=== PATIENT | female | born 1945 | race Caucasian/White ===

== ENCOUNTER → 2016-09-05 | Outpatient (CLI) | payer MEDICARE, OTHER ==
--- NOTE | 2016-09-05 11:42 | MAM ---
History: Well woman exam. Date of exam: 09/05/2016 Services provided: Bilateral full field digital screening mammography. CAD, the images were reviewed with R2 computer aided detection. FINDINGS: Glandular tissue is scattered glandular contour with increased mammographic density. Comparison with 2012 exam. Stable glandular distribution. No dominant mass, architectural distortion. Scattered benign-appearing calcifications are stable with a new segmentally distributed calcification left breast 2:00. IMPRESSION: Incomplete study Recommendation: Further characterization grouped microcalcifications left breast 2:00. True lateral film with spot compression magnification views. BIRAD CATEGORY: 0 INCOMPLETE Electronically signed by: Cary Swift MD 09/05/2016 11:41 AM CDT
== END | disposition home or self-care (01) ==
LOC: MAMMO 10:01
PROVIDERS: ATTEND Family Medicine
DX: Z12.31 Encounter for screening mammogram for malignant neoplasm of breast (principal)

== ENCOUNTER → 2016-09-27 | Outpatient (CLI) | payer MEDICARE, OTHER ==
--- NOTE | 2016-09-27 14:42 | MAM ---
History: Segmental microcalcifications left breast 2:00 DATE OF SERVICE: 09/27/2016 Services provided: Full field digital diagnostic left mammography. Targeted Limited left breast sonography. FINDINGS: True lateral and spot compression magnification views of the left breast are obtained. Study is correlated with screening evaluation from 09/05/2016 and last examination from 2011. The glandular parenchyma is nodular in contour and diffusely of increased mammographic density. The spot magnification views raise the question of a focal nodular asymmetry in the retroareolar 1:00 portion of the breast. The microcalcifications on the left are in a segmental distribution and have slight variation in their morphology, extending anterior to posterior approximately 4 cm. Directed left breast sonography confirms a benign-appearing intramammary lymph node at 1:00 retroareolar. A normal appearance to the fibroglandular tissue is otherwise shown. IMPRESSION: Suspicious exam. Segmental microcalcifications left breast 2:00 with differential consideration of fibrocystic change, malignancy or less likely secretory calcifications. Recommendation: Surgical or needle biopsy. Findings and recommendations were communicated to the patient. BIRAD CATEGORY: 4 SUSPICIOUS FINDINGS Electronically signed by: Cary Swift MD 09/27/2016 2:42 PM CDT
--- NOTE | 2016-09-28 17:08 | US ---
History: Indeterminate microcalcifications left breast 2:00. DATE OF SERVICE: 10/05/2016 Services provided: Full field digital diagnostic left mammography. Targeted Limited left breast sonography. FINDINGS: See body of dictation under the mammogram evaluation IMPRESSION: Indeterminate microcalcifications left breast 2:00. Recommendation: Stereotactic or surgical excisional biopsy. Findings and recommendations were communicated to the patient. BIRAD CATEGORY: 4 SUSPICIOUS FINDINGS Electronically signed by: Cary Swift MD 09/28/2016 5:07 PM CDT
== END | disposition home or self-care (01) ==
LOC: MAMMO 12:55
PROVIDERS: ATTEND Family Medicine
DX: R92.8 Other abnormal and inconclusive findings on diagnostic imaging of breast (principal)
CPT/HCPCS: 76641; 77065; G0206

== ENCOUNTER 2016-10-01 15:00 | Inpatient (IN) | payer MEDICARE, OTHER ==
--- NOTE | 2016-10-01 15:04 | HP ---
HISTORY OF PRESENT ILLNESS: This 71 year-old white female was admitted to the hospital as a direct admission from Dr. Verdugo' office. She has been getting sicker for the last 3 days with fever and chills, burning on urination, tenderness in the right upper quadrant of the abdomen with radiation around to the right flank. Dysuria and increased frequency of urination with dribbling of urine has become prominent, especially a couple of days ago with significant chills, malaise, loss of appetite significantly involved. Earlier in the clinic , her white count was noted to be 21,000. She was sent from the clinic to the hospital for specific evaluation because of a significant underlying condition with the possibility of nausea without vomiting contributing to right upper quadrant abdominal pain, possibly being a gallbladder or an acute abdomen. Her abdomen was otherwise soft but she is to be seen in consultation with Dr. Sexton upon arrival in the hospital. Of note is that she has had an abnormal mammogram involving the left breast which is scheduled for close followup as well. PAST MEDICAL HISTORY: 1. Hypertension. PAST SURGICAL HISTORY: 1. Appendectomy. 2. Hysterectomy. CURRENT MEDICATIONS: ALLERGIES: FAMILY HISTORY: Cancer, diabetes and coronary artery disease. 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 She has not smoked and her has subsequently stopped smoking. REVIEW OF SYSTEMS: Significant fever and chills noted the last 2 to 3 days. Weight is stable. HEENT: No hearing or vision disturbances. LUNGS: No significant cough or shortness of breath. CARDIOVASCULAR: No palpitations. ABDOMEN: Decreased appetite, pain in the right upper quadrant radiating around to the right flank. Some nausea present but no vomiting and no significant blood in the stools or diarrhea. EXTREMITIES: No significant edema. NEUROLOGIC: Somewhat weak. Decreased appetite. No focal weakness noted. PHYSICAL EXAMINATION: VITAL SIGNS: Afebrile, blood pressure 126/72, respirations 18, pulse oximetry 97% on room air. Weight is 79.5 kilos. GENERAL: The patient is awake, alert and oriented, and communicative. Her is also present. She has had significant chills recently but is feeling a little bit better now after arriving in the hospital. Generally the patient is acutely ill. HEENT: Unremarkable. NECK: Supple. CHEST: Lungs are clear. CARDIOVASCULAR: Tones are regular with a grade 2/6 systolic murmur up towards the base of the heart suggesting the possibility of an aortic stenotic murmur. ABDOMEN: Has good bowel tones. Some mild tenderness in the right upper quadrant but no rebound tenderness. No organomegaly evident. No evidence of a significant intraabdominal pathology pointing towards surgery at this time. There is percussion tenderness in the right CVA compared to the left. Only minimal right upper quadrant discomfort noted on deep palpation. EXTREMITIES: Fairly well formed with good range of motion. NEUROLOGIC: No focal neurological deficits. The patient is awake, alert and oriented, and communicative. LABORATORY: Laboratory was performed in the clinic. Sugar is 122, BUN 24, creatinine 1.3. The rest of the chemistries were within normal limits. White count is 21,200 with 79% neutrophils, hemoglobin 11.2, platelets 254,000. Urinalysis is performed after her arrival in the hospital and it showed marked hematuria, pyuria and bacteriuria with nitrite negative, and culture now pending. Chest x-ray is performed and shows mild increased heart size. Abdominal ultrasound showed the possibility of some gallbladder sludge, otherwise no evidence of a cholecystitis. Mild liver enlargement. ASSESSMENT: 1. Acute abdominal pain with associated nausea. 2. Significant leukocytosis. 3. Acute urinary tract infection with probable associated right pyelonephritis symptomatic with abdominal pain to the right flank. 4. Cardiac murmur suggesting aortic stenosis. 5. Abnormal mammograph left breast with close followup suggested with Dr. Sexton and further investigation and treatment is indicated. 6. Febrile illness with associated chills. 7. History of hypertension. PLAN: The patient is admitted to the hospital for parenteral therapy with Meropenem pending culture results. The significance of the underlying infection is noted and close observation, management and treatment is necessary. She will be on a restricted fluid diet tonight with GI rest and will be reevaluated in the morning. Close followup with Dr. Sexton is necessary for the abnormal mammogram as well as the abdominal pain currently under evaluation. #[id number] [facility]
[2016-10-01] MEDS ORDERED: SODIUM CHLORIDE 0.9% (FLUSH) 10 ML SYG IV PRN (15:05)
[2016-10-01] MEDS ORDERED: ONDANSETRON INJ 4 MG/2 ML VIAL IV PRN (15:15)
[2016-10-01] MEDS ORDERED: HYDROmorphone HCL INJ 2 MG/ML VIAL IV PRN (15:18)
[2016-10-01] MEDS ORDERED: IV SET AND CAP CHANGE INJ INJ SCH (15:30)
--- NOTE | 2016-10-01 15:57 | US ---
EXAM DESCRIPTION: Abdomen,Complete CLINICAL HISTORY: RUQ abd pain, nausea, elevated WBC's COMPARISON: None Available. TECHNIQUE: Complete abdominal ultrasound FINDINGS: The liver is mildly enlarged at 16.1 cm. It demonstrates normal echogenicity. There is no focal hepatic mass. The gallbladder contains a small amount of layering sludge. No sonographic evidence of cholelithiasis.The gallbladder wall measures 2 mm. The common bile duct measures 5 mm. Visualized portions of the pancreas are unremarkable. Portions of the body and tail are not well seen due to bowel gas. The spleen is normal in size, shape, and echotexture. The right kidney measures 9.5 cm in length, and the left kidney measures 9.7 cm in length. 2 left renal cysts are demonstrated which measure about 1 cm each. The IVC and the proximal aorta are unremarkable. IMPRESSION: 1. Gallbladder sludge without sonographic evidence for cholecystitis. 2. Mild hepatic enlargement. Electronically signed by: Isacc Erwin MD 10/01/2016 3:57 PM CDT
--- NOTE | 2016-10-01 16:05 | RAD ---
EXAM DESCRIPTION: Chest,2 Views CLINICAL HISTORY: 71 years, Female, abd pain COMPARISON: None. FINDINGS: Slightly shallow inspiration. Slight increased opacity at the lung bases probably chronic change or atelectasis. Cardiac silhouette upper normal. IMPRESSION: Mild chronic appearing lung change with heart size upper normal Electronically signed by: Onel Patton MD 10/01/2016 4:04 PM CDT
[2016-10-01] MEDS: PANTOPRAZOLE SODIUM IV 40 MG VIAL IV SCH (16:50)
[2016-10-01] MEDS: KCL 20 MEQ/NS 1,000 ML IVS PRN (16:51)
--- NOTE | 2016-10-01 18:01 | CONS ---
DATE OF CONSULTATION: 10/01/16 HISTORY OF PRESENT ILLNESS: The patient is 71 year-old female who was actually referred to me for tomorrow for an abnormal left mammogram. She was admitted today with fever and what is thought to be right upper quadrant abdominal pain. I have been asked to see her for these. The patient states that she has been febrile since Saturday night. She has had some trouble eating but ate okay Saturday during the day. She denies specific fatty food intolerance. Denies a history of hepatitis or jaundice. Denies blood per rectum, melenic stools. Denies emesis. She denies weight loss. She does state that she has had burning with urination. PAST MEDICAL HISTORY: 1. She had an echocardiogram in 2011 which showed mild aortic stenosis. PAST SURGICAL HISTORY: 1. Hysterectomy. 2. Appendectomy. CURRENT MEDICATIONS: Please see her list in the nurses' notes. ALLERGIES: NO KNOWN DRUG ALLERGIES. FAMILY HISTORY: Positive for breast cancer in her mother and an aortic aneurysm in a brother. SOCIAL HISTORY: The patient is . Does not smoke. She is retired. She drinks on an almost daily basis. REVIEW OF SYSTEMS: Noncontributory, except as in the History of Present Illness. PHYSICAL EXAMINATION: VITAL SIGNS: Temperature was measured at 97.6, blood pressure 126/72, respiratory rate 18, pulse rate 92. GENERAL: The patient is awake, alert and cooperative. HEENT: Sclera are nonicteric. Mucous membranes are moist. NECK: Without adenopathy. BACK: There is right sided CVA tenderness. CHEST: Equal breath sounds bilaterally without wheezing. HEART: Regular rate and rhythm, however there is what sounds to me like a holosystolic murmur. ABDOMEN: Soft. There is diffuse tenderness greatest in the right upper quadrant and epigastrium with no guarding, mass or rebound. PELVIC AND RECTAL: Examinations are deferred. EXTREMITIES: Without clubbing, cyanosis or edema. LABORATORY: White blood cell count in Dr. Verdugo' office is said to be 21,000. I do not have a hemoglobin. I do not have a differential or a platelet count. Her liver function tests were within normal limits. Potassium and creatinine, I have not seen. I have reviewed her ultrasound which revealed no gallbladder wall thickening. No pericholecystic fluid. No dilation of the biliary tree. No obvious stones. The mammogram that I was noted to see shows some irregular calcifications in the left periareolar area, but no mass. IMPRESSION: 1. Abdominal versus right flank pain, fever and leukocytosis along with an abnormal mammogram. RECOMMENDATIONS: The recommendations will be discussed with Dr. Church. I will get the urinalysis and urine culture which has not been done, then we will start the patient on antibiotics. Pending his physical examination, consideration for a CT scan, but we will probably wait until tomorrow on that as long as the urine is not clear. If the urine is clear, would recommend proceeding with a CT scan of the abdomen and pelvis. #[id number] [facility]
[2016-10-01] MEDS: LEVALBUTEROL NEBS 0.63 MG/3 ML VIAL INH SCH ×2 (18:10→23:44)
[2016-10-01] MEDS ORDERED: SODIUM CHL 0.9% 50ML MIN-BAG+ 50 ML IVPB ONE ×2 (18:59→20:12)
[2016-10-01] MEDS ORDERED: MEROPENEM 1 GM VIAL IVPB ONE ×2 (18:59→20:13)
[2016-10-01] MEDS: MEROPENEM 1 GM in SODIUM CHL 0.9% 50ML MIN-BAG+ 50 ML IVPB SCH (19:03)
[2016-10-02] MEDS: MEROPENEM 1 GM in SODIUM CHL 0.9% 50ML MIN-BAG+ 50 ML IVPB SCH ×3 (03:22→22:52)
[2016-10-02] MEDS: ACETAMINOPHEN 325 MG TAB PO PRN ×2 (03:50→23:39)
[2016-10-02] MEDS ORDERED: SODIUM CHL 0.9% 50ML MIN-BAG+ 50 ML IVPB ONE ×2 (08:05→21:00)
[2016-10-02] MEDS ORDERED: MEROPENEM 1 GM VIAL IVPB ONE ×2 (08:05→21:00)
[2016-10-02] MEDS: KCL 20 MEQ/NS 1,000 ML IVS PRN ×2 (08:06→19:26)
[2016-10-02] MEDS: LEVALBUTEROL NEBS 0.63 MG/3 ML VIAL INH SCH ×2 (08:35→16:03)
[2016-10-02] MEDS: AMLODIPINE BESYLATE BENAZEPRIL PO SCH (10:40)
--- NOTE | 2016-10-02 11:01 | PN ---
DATE: 10/02/16 SUBJECTIVE: The patient is feeling much improved today and states she is at least 90% to 100% better with less abdominal pain. No nausea at this time. She was actually hungry this morning. Still with some mild discomfort upon palpation to the right side of her abdomen, but much less. Less right flank discomfort on percussion. OBJECTIVE: VITAL SIGNS: Temperature up to 101.4 at 3 AM this morning and is 99.2 later this morning with pulse oximetry 96% on room air. LUNGS: Still with some rhonchi laterally. Otherwise, a little clearer today. ABDOMEN: Still with some mild tenderness, but much less tender today compared to yesterday. Tenderness mainly on the right side of the abdomen on deep palpation. LABORATORY: White count is down from 21,000 to 14,500 with 81% neutrophils, hemoglobin 9.7 with recheck tomorrow. Chemistries show sodium 132, potassium 3.7, BUN 26, creatinine 1.24, glucose 109. Amylase and lipase normal. Urinalysis did show evidence of a significant urinary tract infection and culture does show gram negative stuart and when the agar is examined, it appears to be a lavender appearance suggestive of gram negative stuart of E. coli species with final culture sensitivity by in the morning. We will continue with the meropenem in the meantime and then change to an oral medication after completion of the parenteral treatment course. ASSESSMENT: 1. Acute abdominal pain with associated nausea, showing some clinical improvement. 2. Acute urinary tract infection with clinical evidence of acute right pyelonephritis, symptomatic, showing some clinical and laboratory improvement. 3. Significant leukocytosis, improved as treatment course was presented. 4. Probable urinary tract infection with Escherichia coli with final identification and sensitivity by tomorrow morning. 5. Cardiac murmur suggesting aortic stenosis. 6. Abnormal mammogram, left breast, with close followup suggested with Dr. Sexton and further investigation and treatment as indicated. 7. Febrile illness with chills, showing some slight improvement. 8. History of hypertension with treatment continuing. PLAN: Continue current treatment program with meropenem. Await culture sensitivity results and then adjust treatment at the time of discharge to continue with oral treatment per sensitivity. Dr. Sexton also continues to follow the abdomen to make sure that no underlying pathology is noted and will also follow the abnormal mammogram in a timely manner. #[id number] [facility]
[2016-10-02] MEDS ORDERED: MAGNESIUM HYDROXIDE 30 ML UD PO ONE (12:44)
[2016-10-02] MEDS: PANTOPRAZOLE SODIUM IV 40 MG VIAL IV SCH (15:50)
[2016-10-02] MEDS ORDERED: SODIUM CHL 0.9% 100ML MINI-BAG 100 ML IVPB ONE (20:59)
[2016-10-02] MEDS ORDERED: MONTELUKAST 10 MG TAB PO SCH (21:00)
[2016-10-03] MEDS: LEVALBUTEROL NEBS 0.63 MG/3 ML VIAL INH SCH ×3 (00:13→16:06)
[2016-10-03] MEDS: KCL 20 MEQ/NS 1,000 ML IVS PRN (05:39)
[2016-10-03] MEDS: AMLODIPINE BESYLATE BENAZEPRIL PO SCH (08:48)
[2016-10-03] MEDS ORDERED: MEROPENEM 1 GM VIAL IVPB ONE (11:09)
[2016-10-03] MEDS ORDERED: SODIUM CHL 0.9% 50ML MIN-BAG+ 50 ML IVPB ONE (11:09)
[2016-10-03] MEDS: MEROPENEM 1 GM in SODIUM CHL 0.9% 50ML MIN-BAG+ 50 ML IVPB SCH (11:18)
--- NOTE | 2016-10-03 16:06 | DS ---
SUPERVISING PHYSICIAN: Sudarshan Verdugo M.D. DISCHARGE DIAGNOSIS: 1. Acute right pyelonephritis, symptomatic, presently on Merrem. 2. Acute abdominal pain with associated nausea that has improved. 3. Leukocytosis that has now normalized. 4. Urinary tract infection with Escherichia coli with a pansensitive culture. 5. Cardiac murmur suggesting aortic stenosis. 6. Abnormal mammogram of the left breast with close followup suggested with Dr. Sexton and further investigation and treatment as indicated. 7. Febrile illness with chills that improved with antibiotics and fluids. 8. Hypertension presently on oral treatment. HISTORY OF PRESENT ILLNESS: This is a 71 year-old female patient that was a direct admission from her primary care physician, Dr. Verdugo' office. She had been getting progressively sicker over the last 3 days prior to admission with associated fever and chills as well as burning with urination and tenderness to the right upper quadrant of the abdomen that radiated to the right flank. She also had associated symptoms of dysuria and polyuria as well as dribbling. In the clinic, her white count was shown to be 21,000. She was sent from the clinic to the hospital for hospital admission. Of note, she was supposed to have been seen in consultation with Dr. Sexton due to an abnormal mammogram and he was consulted in the hospital. She was placed on Merrem as well as given fluids. She was afebrile over the last 24 hours in the hospital with her vital signs remaining stable. Her white count improved to 9.[address] Sexton will followup with her as an outpatient as needed and per his instructions for her mammogram. Her chemistries normalized today with the exception of her BUN was slightly high at 22. Her amylase and lipase also during admission were amylase 28 and lipase 28. She is feeling much better. She has no other complaints of dysuria, polyuria, or any other adverse symptoms. She will be discharged home today. DISCHARGE PLAN: The patient will be discharged home in stable condition. She is to resume her previous diet as well as her previous activity. I have resumed her home medications. She has a followup appointment with Dr. Verdugo on 10/11/16 at 11 AM. She is to followup with Dr. Verdugo' office or return to the Emergency Room for any complications or new symptoms. DISCHARGE MEDICATIONS: 1. Singulair. 2. Amlodipine. 3. Benazepril. 4. Pravastatin. 5. Chlorthalidone. 6. Levaquin. 500 mg daily for [address] Verdugo is the collaborating physician and available for consultation. #[id number] [facility]
[2016-10-03 16:07] VITALS: O2SAT 91
[2016-10-03 18:34] VITALS: BP 126/63; TEMP 98.7
[2016-10-03] MEDS ORDERED: SODIUM CHLORIDE 0.9% (FLUSH) 10 ML SYG IV SCH (21:00)
== END 2016-10-03 16:20 | disposition home or self-care (01) | DRG 690 ==
LOC: MS 15:00
PROVIDERS: ADMIT Emergency Medicine; ATTEND Nurse Practitioner Acute Care
DX: N10 Acute pyelonephritis (principal); B96.20 Unspecified Escherichia coli [E. coli] as the cause of diseases classified elsewhere; I35.0 Nonrheumatic aortic (valve) stenosis; I10 Essential (primary) hypertension; R92.1 Mammographic calcification found on diagnostic imaging of breast; Z79.899 Other long term (current) drug therapy

== ENCOUNTER 2016-12-13 05:59 | Day surgery (SDC) | payer MEDICARE, OTHER ==
--- NOTE | 2016-12-11 14:09 | RAD ---
EXAM DESCRIPTION: Chest,2 Views CLINICAL HISTORY: 71 years, Female, sURGERY 12/13/16 preoperative COMPARISON: October 01 FINDINGS: Slightly shallow inspiration without consolidation. Cardiac silhouette normal. IMPRESSION: Shallow inspiration shows clear lungs and normal cardiac silhouette Electronically signed by: Onel Patton MD 12/11/2016 2:08 PM CDT
[2016-12-13] MEDS ORDERED: LACTATED RINGERS 1,000 ML ONE (06:48)
[2016-12-13] MEDS ORDERED: ceFAZolin SODIUM 1 GM VIAL ONE (06:50)
[2016-12-13] MEDS ORDERED: SODIUM CHL 0.9% 100ML MINI-BAG 100 ML IVPB ONE (06:51)
[2016-12-13] MEDS ORDERED: LIDOCAINE 1% 10 ML VIAL INJ ONE (07:00)
[2016-12-13] MEDS ORDERED: PROPOFOL 200 MG/20 ML VIAL IV ONE (07:00)
[2016-12-13] MEDS ORDERED: SODIUM BICARBONATE 10MEQ/10ML 10 MEQ/10 ML SYG IV ONE (08:05)
[2016-12-13] MEDS ORDERED: LIDOCAINE 1% 50 ML VIAL INJ ONE (08:05)
[2016-12-13] MEDS ORDERED: MIDAZOLAM INJ 5 MG/5 ML VIAL ONE (10:27)
[2016-12-13] MEDS ORDERED: fentaNYL CITRATE INJ 50 MCG/ML AMP ONE (10:27)
--- NOTE | 2016-12-13 11:47 | MAM ---
EXAM DESCRIPTION: Breast-Needle Localization Lt CLINICAL HISTORY: 71 years FemaleLEFT breast abnormal calcifications. COMPARISON: Digital diagnostic left breast mammogram 09/27/2016. Digital screening bilateral examination 09/05/2016. Post biopsy digital left breast specimen mammogram following this procedure. TECHNIQUE: The procedure was explained to the patient with risks and benefits. The patient gave verbal and written consent. The area for localization was identified in the anterior third of the left breast at the 900 clock position. The patient was placed in the digital mammographic unit in the lateral medial position, utilizing the special compression paddle with localizing window. Lateral medial image shows the abnormal calcifications. Sterile preparation. Intradermal injection of sodium bicarbonate and standard strength Xylocaine. The 5 mm RoundPeggs needle-wire system was introduced through the paddle window into the lateral anterior left breast. Repeat lateral medial image, with needle in place. The breast was moved into the craniocaudal position; repeat images after adjustment showing proper needle depth. Continuing sterile technique, the needle was withdrawn, leaving hook wire in place. Repeat craniocaudal image. Repeat lateral medial image with wire only. The hard copy images were labeled for surgical guidance. Images were reviewed with Dr. Lau. The patient tolerated the procedure well with no immediate complications. FINDINGS: Abnormal calcifications are noted at coordinates E: 1-3. Images with wire hook show hook abutting the more posterior calcifications. IMPRESSION: Successful mammographic guided needle wire localization of lateral anterior left breast abnormal calcifications. The procedure results were discussed with Dr. Lau. Digital mammography of the biopsy specimen to follow excisional biopsy. Electronically signed by: Braulio Peña MD 12/13/2016 11:46 AM CDT Workstation: [id number]
--- NOTE | 2016-12-13 11:56 | OP ---
DATE OF PROCEDURE: 12/13/16 PREOPERATIVE DIAGNOSIS: 1. Abnormal left mammogram with indeterminate calcifications. POSTOPERATIVE DIAGNOSIS: 1. Abnormal left mammogram with indeterminate calcifications. PROCEDURE: 1. Excision of left breast lesion after needle localization. SURGEON: Sy Sexton MD. ORTHODONTIC ASSISTANT: None. ANESTHESIA: Local infiltration with 1% lidocaine with bicarb and IV sedation by Anesthesia. INDICATION: The patient is a 71-year-old female who on routine mammography was found to have an area of new indeterminate calcifications. After the risks, benefits and alternatives including stereotactic biopsy, she was brought to the Surgical Suite today for excision after needle localization. FINDINGS: The specimen radiograph reveals calcifications within the specimen. PROCEDURE: After the needle localization was done in Radiology, the patient was brought to the Surgical Suite and placed in supine position. She was prepped and draped in the usual sterile manner. A radial incision was made lateral to the left areola, first with a marking pen and then with infiltration of anesthesia. The skin was incised with a knife and then dissection was carried down through the skin and subcutaneous tissue using electrocautery. The guidewire was identified and transected. The tissue was excised using the guidewire was a guide. The specimen was marked medially, superiorly, and anteriorly with sutures and sent for radiologic evaluation. The wound was irrigated with saline. Hemostasis was obtained with electrocautery. It was then closed in layers with 2 layers of 3-0 Vicryl simple sutures, one deep and the superficial subcutaneous tissue. The skin edges were reapproximated with 4- 0 Vicryl subcuticular sutures, benzoin and Steri-Strips. Sterile pressure dressing was applied. The patient tolerated the procedure well. Estimated blood loss was less than 25 mL. All sponge, needle and instrument counts were correct. #[id number] [facility]
--- NOTE | 2016-12-13 11:58 | MAM ---
EXAM DESCRIPTION: Breast Surgical Specimen CLINICAL HISTORY: 71 yearsFemaleBX. Abnormal calcifications lateral left breast. COMPARISON: Mammographic guided, needle wire localization of lateral anterior left breast today. TECHNIQUE: Digital mammography of anterior lateral left breast biopsy specimen. FINDINGS: The left breast biopsy specimen contains the abnormal linear and segmental "needle-point" calcifications seen on today's procedure images and also seen on images from previous examinations. The distal wire and hook are within the specimen. Some of the calcifications are adjacent to the hook of the wire, which is peripheral in the specimen. Some calcifications are seen more centrally. IMPRESSION: Successful, digital mammographic guided, needle wire localization of abnormal calcifications in the anterior-lateral left breast, with calcifications present in the biopsy specimen. Pathology results pending at remote facility. Electronically signed by: Braulio Peña MD 12/13/2016 11:56 AM CDT Workstation: [id number]
[2016-12-13 13:31] VITALS: BP 135/66; TEMP 97; O2SAT 100
== END 2016-12-13 12:35 | disposition home or self-care (01) ==
LOC: AMB 05:59
PROVIDERS: ATTEND Surgery
DX: R92.0 Mammographic microcalcification found on diagnostic imaging of breast (principal); E78.5 Hyperlipidemia, unspecified; I10 Essential (primary) hypertension; D64.9 Anemia, unspecified; R01.1 Cardiac murmur, unspecified; Z88.8 Allergy status to other drugs, medicaments and biological substances; Z79.899 Other long term (current) drug therapy
CPT/HCPCS: 00400; 19120; 36415; 71020; 76098; 80048; 81001; 85025; 87086; 87088; 87186; 93005; J0690; J2250; J3010; J3490; J7050; J7120

== ENCOUNTER → 2017-07-16 | Outpatient (CLI) | payer MEDICARE, OTHER | LOC: GMAJ 11:40 | PROVIDERS: ATTEND Family Medicine | DX: I10 Essential (primary) hypertension (principal) ==

== ENCOUNTER → 2017-10-30 | Outpatient (CLI) | payer MEDICARE, OTHER ==
--- NOTE | 2017-10-30 16:25 | US ---
EXAM DESCRIPTION: Carotid Duplex: ULTRASOUND. CLINICAL HISTORY: OCCLUSION AND STENOSIS OF BILAT CAROTIC ARTERIES COMPARISON: None. TECHNIQUE: Transcutaneous scanning utilizing 2-dimensional and Doppler modes to evaluate the bilateral carotid systems and vertebral arteries. Percentage of diameter of stenosis or no stenosis recorded will be based upon NASCET criteria. FINDINGS: Peak systolic/end diastolic (CM-Sec) CCA Right 75/11 Left 68/13. ICA Right proximal 76/24, mid 92/24. Left proximal 44/11, mid 43/12. Vertebral Right 34/7 Left 45/7. ECA (PS Only) Right 72 left 84. ICA/CCA peak systolic ratio: Right 1.2 Left 0.6w ICA/CCA end diastolic ratio: Right 2.2 Left 0.9 Vertebral arteries: antegrade flow. Comments: Atherosclerotic calcification in the distal right CC and coned carotid bulb. Spectral broadening in the proximal ECA and ICA. Area stenosis of right distal CCA is 37%. Diameter stenosis is 40%. Area stenosis of the right CCA bulb is 43%. Diameter stenosis is 27%. Atherosclerotic plaque in the distal left CCA and bifurcation. Spectral broadening in the proximal left ECA and ICA with color turbulent flow in the proximal left ICA. Area stenosis in the mid left CCA is 40%. Diameter stenosis is 47%. Area stenosis in the mid CCA bulb is 29%. Diameter stenosis is 30%. IMPRESSION: 1. Doppler evaluation of the bilateral carotid systems and vertebral arteries shows no hemodynamically significant stenoses. 2. No significant amount of plaque seen in the carotid arteries bilaterally. Bilateral vertebral arteries showed antegrade-cephalad flow. Electronically signed by: Braulio Peña MD 10/30/2017 4:24 PM CDT
--- NOTE | 2017-10-31 17:21 | MAM ---
EXAM DESCRIPTION: 3D Screening BILATERAL : Digital Mammography. CLINICAL HISTORY: 72 years Female ANNUAL SCREENING . No complaints. Mother with breast cancer. Remote family history of breast cancer. Childbirth. Postmenopausal. Prior left breast biopsy benign. COMPARISON: Mammographic wire localization with breast 12/13/2016. Ultrasound left breast 09/27/2016. Diagnostic left breast mammography 09/27/2016. 2-D digital screening bilateral study 09/05/2016. Reports from prior examinations also reviewed. TECHNIQUE: Bilateral CC and MLO projection full-field images, 3-D tomosynthesis digital mammographic technique. CAD not utilized. FINDINGS: The breast parenchymal density pattern is: Heterogeneously dense breast tissue, which may obscure small masses. No skin thickening or nipple retraction. Bilateral solitary microcalcifications. Abnormal calcifications seen on the prior study lateral anterior left breast are no longer visualized. No focal, stellate mass or density, focal asymmetry , and no suspicious microcalcifications bilaterally. IMPRESSION: BI-RADS CATEGORY: 2 - BENIGN FINDINGS. FOLLOW UP: Routine digital bilateral screening, one year interval from October 2017. Written communication explaining the IMPRESSION and follow-up, will be mailed to the patient and referring health care provider. According to the [employer], yearly mammograms are recommended starting at age 40 and continuing as long as a woman is in good health. Any breast change noted on a breast self-exam should be reported promptly to the patient's healthcare provider. Breast MRI is recommended for women with an approximately 20-25% or greater lifetime risk of breast cancer, including women with a strong family history of breast or ovarian cancer and women who have been treated for Hodgkin's disease. A negative mammographic report should not delay tissue diagnosis in patients with significant clinical history or physical findings. Extremely dense breast tissue limits the sensitivity of digital mammography. Electronically signed by: Braulio Peña MD 10/31/2017 5:20 PM CDT
== END ==
LOC: US 10:30
PROVIDERS: ATTEND Family Medicine
DX: Z12.31 Encounter for screening mammogram for malignant neoplasm of breast (principal); I65.23 Occlusion and stenosis of bilateral carotid arteries

== ENCOUNTER → 2018-02-06 | Outpatient (CLI) | payer MEDICARE, OTHER | LOC: GMAJ 11:18 | PROVIDERS: ATTEND Family Medicine | DX: I10 Essential (primary) hypertension (principal) ==

== ENCOUNTER → 2018-11-07 | Outpatient (CLI) | payer MEDICARE, OTHER ==
--- NOTE | 2018-11-11 17:22 | MAM ---
EXAM DESCRIPTION: 3D Screening BILATERAL : Digital Mammography. CLINICAL HISTORY: 73 years Female ANNUAL SCREENING . No complaints or personal history of breast cancer. Mother with breast cancer at age 75. Childbirth. Postmenopausal 35+ years. No HRT. Lifetime risk of developing breast cancer (Tyrer-Cuzick model)(%): 10.0. COMPARISON: Bilateral screening digital breast tomosynthesis 10/30/2017.. No prior reports available. TECHNIQUE: Bilateral CC and MLO projection full-field images, digital tomosynthesis mammographic technique. Bilateral digital 2-D full-field MLO images. CAD not available for tomosynthesis or 2-D images. FINDINGS: The breast parenchymal density pattern is: Heterogeneously dense breast tissue, which may obscure small masses. No skin thickening or nipple retraction. Multiple bilateral solitary microcalcifications. Bilateral vascular calcifications. Minimal architectural distortion in the lateral superior middle third left breast stable. No new focal, stellate mass or density, focal asymmetry , and no suspicious microcalcifications bilaterally. Stable mammograms compared to prior study. IMPRESSION: Benign exam. BIRAD CATEGORY: 2 BENIGN FINDINGS. RECOMMENDATIONS: FOLLOW UP: Routine digital bilateral mammographic screening, one year interval from October 2018. Written communication explaining the IMPRESSION and follow-up, will be mailed to the patient and referring health care provider. According to the [employer], yearly mammograms are recommended starting at age 40 and continuing as long as a woman is in good health. Any breast change noted on a breast self-exam should be reported promptly to the patient's healthcare provider. Breast MRI is recommended for women with an approximately 20-25% or greater lifetime risk of breast cancer, including women with a strong family history of breast or ovarian cancer and women who have been treated for Hodgkin's disease. A negative mammographic report should not delay tissue diagnosis in patients with significant clinical history or physical findings. Extremely dense breast tissue limits the sensitivity of digital mammography. Electronically signed by: Braulio Peña MD 11/11/2018 5:20 PM CDT
== END ==
LOC: MAMMO 10:00
PROVIDERS: ATTEND Family Medicine
DX: Z12.31 Encounter for screening mammogram for malignant neoplasm of breast (principal)

== ENCOUNTER → 2019-05-05 | Outpatient (CLI) | payer MEDICARE, OTHER ==
--- NOTE | 2019-05-05 15:12 | CT ---
EXAM DESCRIPTION: Head CT without contrast CLINICAL HISTORY: DIZZINESS AND GIDDINESS COMPARISON: None available TECHNIQUE: Noncontrast head CT was performed with routine protocol. FINDINGS: Normal garduno-white matter differentiation. Ventricles and sulci are normal for age. No high density hemorrhage, focal edema or shift of the midline. No sulcal effacement. Normal orbital contents. Basilar cisterns appear clear. Intact calvarium with no fracture or lytic lesion. Normal aeration of tympanic cavities and mastoid air cells. No fluid levels in the paranasal sinuses. Skull base appears intact. Symmetrical internal auditory canals. IMPRESSION: No acute intracranial pathologic process. This exam was performed according to our departmental dose-optimization program, which includes automated exposure control, adjustment of the mA and/or kV according to patient size and/or use of iterative reconstruction technique. Total DLP equals 752.48 mGycm. Electronically signed by: Bg Palacios MD 05/05/2019 3:10 PM [facility]
== END ==
LOC: CT 10:30
PROVIDERS: ATTEND Family Medicine
DX: R42 Dizziness and giddiness (principal)

== ENCOUNTER → 2020-02-09 | Outpatient (CLI) | payer MEDICARE, OTHER ==
--- NOTE | 2020-02-10 13:47 | US ---
EXAM DESCRIPTION: Venous,Lower Extremity LT: ULTRASOUND. CLINICAL HISTORY: LOC SWELLING, MASS AND LUMP, LEFT LOWER LIMB COMPARISON: None Available. TECHNIQUE: Clayton-scale and doppler sonographic evaluation of the deep venous system of the left lower extremity. FINDINGS: Doppler evaluation shows normal color flow and normal phasicity and augmentation of the left common femoral vein, left femoral vein, popliteal vein, greater saphenous vein, junction with the CFV. Also normal color flow and normal phasicity and augmentation of the peroneal, and posterior tibial vein. The left lower extremity deep veins were completely compressible; normal occlusion with transducer pressure. Clayton-scale survey showed no echogenic thrombus within these veins. IMPRESSION: 1. Duplex ultrasound evaluation of the left lower extremity deep venous system showing no evidence of thrombosis. Electronically signed by: Braulio Peña MD 02/10/2020 1:45 PM CDT
== END ==
LOC: US 13:38
PROVIDERS: ATTEND Family Medicine
DX: R22.42 Localized swelling, mass and lump, left lower limb (principal); M72.2 Plantar fascial fibromatosis

== ENCOUNTER → 2020-02-19 | Outpatient (CLI) | payer MEDICARE, OTHER ==
--- NOTE | 2020-02-19 20:57 | US ---
Exam: Bilateral lower extremity arterial Doppler sonogram CLINICAL HISTORY: Peripheral vascular disease TECHNIQUE: Doppler sonographic evaluation of the bilateral lower extremities was performed. FINDINGS: Right Submitted sonographic images reveal normal widely patent vessels with no significant stenosis. Normal flow velocities with multiphasic flow throughout the right lower extremity. The following peak systolic flow flow velocity measurements were obtained: Common femoral artery velocity equals 86 centimeters per second , triphasic. Profunda femoral artery velocity equals 77 centimeters per second , triphasic. Superficial femoral artery velocity equals 80-110 centimeters per second , triphasic. Popliteal artery velocity equals 68 centimeters per second , biphasic. Peroneal artery velocity equals 55 centimeters per second , biphasic. Posterior tibial artery velocity equals 69 centimeters per second , biphasic. Dorsalis pedis artery velocity equals 52 centimeters per second , biphasic. Left Submitted sonographic images reveal arteriosclerotic plaque in the left lower extremity arteries with stenosis of the left posterior tibial artery. The following peak systolic flow flow velocity measurements were obtained: Common femoral artery velocity equals 88 centimeters per second , biphasic. Profunda femoral artery velocity equals 89 centimeters per second , biphasic. Superficial femoral artery velocity equals 96-125 centimeters per second , triphasic. Popliteal artery velocity equals 68 centimeters per second , biphasic. Peroneal artery velocity equals 58 centimeters per second , biphasic. Posterior tibial artery velocity equals 419 centimeters per second , monophasic. Is high velocity flow is consistent with high-grade stenosis. The sagittal images would suggest 75% stenosis of the diameter of the left posterior tibial artery by soft plaque (NASCET criteria). Dorsalis pedis artery velocity equals 50 centimeters per second , biphasic. IMPRESSION: High-grade stenosis of the left posterior tibial artery. Normal velocity multiphasic flow in the other arteries of the lower extremities. Electronically signed by: Bg Palacios MD 02/19/2020 8:56 PM CDT
== END ==
LOC: US 11:00
PROVIDERS: ATTEND Family Medicine
DX: I73.9 Peripheral vascular disease, unspecified (principal)